=== PATIENT | male | born 1990 | race Caucasian/White ===

== ENCOUNTER 2019-12-26 19:55 | Emergency (ER) | payer MEDICAID, SELFPAY ==
[2019-12-26 20:07] VITALS: BP 188/96; PULSE 98; RESP 18; TEMP 36.8; O2SAT 96; BMI 28.7
[2019-12-26 20:13] VITALS: BP 188/96; PULSE 98; RESP 18; TEMP 36.8; O2SAT 96; BMI 30.1
--- NOTE | 2019-12-26 20:42 | XR_ITS ---
PROCEDURE: XR CHEST 2V CLINICAL HISTORY: fever,flu like symptoms Smoker COMPARISON: No exams were available for comparison FINDINGS: The cardiomediastinal silhouette and pulmonary vascularity are within normal limits. The lungs are clear without infiltrates, suspicious nodules, or pleural effusions. No acute bony abnormalities. IMPRESSION: No acute findings. Dictated by: Juan David Todd MD 12/26/2019 21:26 Electronically signed by Juan David Todd MD in [place] 12/26/2019 21:26
[2019-12-26 20:44] LABS: UTC Influenza A Antigen Negative (Negative); UTC Influenza B Antigen Negative (Negative); UTC Strep Screen (Rapid) Negative (Negative)
--- NOTE | 2019-12-26 20:47 | HMH.EDUTC ---
[facility] [place] Clinical Impression: Viral syndrome Carpal tunnel syndrome Qualifiers: Laterality: bilateral Qualified Code(s): G56.03 - Carpal tunnel syndrome, bilateral upper limbs Hypertension Qualifiers: Hypertension type: unspecified Qualified Code(s): I10 - Essential (primary) hypertension Disposition: Home, Self-Care Condition on Discharge: Good Instructions: Carpal Tunnel Syndrome, DI for Viral Syndrome Additional Instructions: Drink plenty of fluids. Take tylenol or ibuprofen for pain or fever. Take the medications as directed. Follow up with your regular doctor within 2 to 3 days if you are no better. GO TO THE ER FOR ANY WORSENING SYMPTOMS Prescriptions: cloNIDine HCL [cloNIDine 0.1mg Tablet] 0.1 mg PO TIDP PRN #21 tab PRN Reason: Blood Pressure - High Transmission Status: Sent to [facility] methylPREDNISolone [Medrol] 4 mg PO DIRECTED 6 Days #21 [email or web address] Transmission Status: Received by [facility] Referrals: Provider,Referral, [Primary Care Provider] - Time of Disposition: 21:01 Medical Decision Making - Medical Records Medical records reviewed: No: I reviewed the patient's medical records. - Juan Inquiry Pt receiving controlled substance: No Vital Signs: 12/26/19 20:07 12/26/19 20:13 12/26/19 21:03 Temperature 98.3 F 98.3 F 98.3 F Temperature Source Oral Oral Oral Pulse Rate 98 H Pulse Rate [Left] 98 H 98 H Respiratory Rate 18 18 18 Blood Pressure 188/96 H Blood Pressure [Right Arm] 188/96 H 188/96 H Blood Pressure Mean [Right Arm] 126 126 Blood Pressure Source Automatic Cuff Blood Pressure Source [Right Arm] Automatic Cuff Blood Pressure Position Sitting Blood Pressure Position [Right Arm] Sitting 02 Sat by Pulse Oximetry 96 96 Oxygen Delivery Method Room Air Room Air Room Air - Lab Data Lab results reviewed: Yes: I reviewed the patient's lab results. Lab Results 12/26/19 20:36: Influenza Type A Ag Negative, Influenza Type B Ag Negative 12/26/19 20:36: Strep Scn Rapid Clinic Negative Orders (Tests/Meds): ORDERS Category Date Time Status Chest XR 2 view (NOT portable) [XR chest 2V] Stat Exams 12/26/19 20:42 Ordered Strep Screen Confirmation Stat Micro 12/26/19 20:36 Received [facility] [place] - General Stated complaint: fever,abd pain, Both hand pain Time Seen by Provider: 12/26/19 20:47 Mode of Arrival: Family Vehicle Source of Information: Patient Limitations: No Limitations Description of Symptoms (Recalled from Triage Doc. by RN): PER TRIAGE FOR DECISON: Pt states he has been running a fever, hasn't taken any tylenol for over 5 hours, no appitite, and would like his carple tunnel looked at HEENT Symptoms (Recalled from RN notes): Yes Resp Symptoms (Recalled from RN notes): No Skin Symptoms (Recalled from RN notes): No MS Symptoms (Recalled from RN notes): No Functional Status (Recalled from RN notes): N/A - History of Present Illness Provider Complaint: He states that he has several complaints. He has a history of carpal tunnel syndrome in both hands. Over the past few days his symptoms have been acting up and he has been unable to sleep due to hand pain and numbness. He has also been running a low grade fever and feeling bad for several days. He went to an outdoor testing site and was tested for covid and it came back negative. He denies any sore throat, but he was treated for strep throat about 2 weeks ago with a z-pack. - Related Data Home Medications Medication Instructions Recorded Confirmed buprenorphine 8 mg-naloxone 2 mg SUBLINGUAL 11/22/19 11/22/19 sublingual tablet Previous Rx's Medication Instructions Recorded cloNIDine HCL [cloNIDine 0.1mg 0.1 mg PO TIDP PRN #21 tab 12/26/19 Tablet] methylPREDNISolone [Medrol] 4 mg PO DIRECTED 6 Days #21 12/26/19 [email or web address] Allergies Allergy/AdvReac Type Severity Reaction Status Date / Time No Known Allergies Allergy
[2019-12-26 21:03] VITALS: BP 188/96; PULSE 98; RESP 18; TEMP 36.8; O2SAT 96
== END 2019-12-26 21:07 | disposition home or self-care (01) ==
LOC: ER 20:10 → UTC 20:10
PROVIDERS: Emergency Provider Nurse Practitioner Family
DX: B34.9 Viral infection, unspecified (principal); G56.03 Carpal tunnel syndrome, bilateral upper limbs; I10 Essential (primary) hypertension; F17.210 Nicotine dependence, cigarettes, uncomplicated
CPT/HCPCS: 71046; 87804; 87880; 99202